=== PATIENT | female | born 1965 | race Hispanic/Latino ===

== ENCOUNTER → 2016-07-01 | Day surgery (SDC) | payer OTHER ==
[2016-07-01 10:46] LABS: ABSOLUTE BASOPHIL COUNT 0 /CUMM (0.0-0.2); ABSOLUTE EOSINOPHIL COUNT 0.6 /CUMM (0.0-0.7); ABSOLUTE GRANULOCYTE CT 2.8 /CUMM (1.4-6.5); ABSOLUTE LYMPH COUNT 1.5 /CUMM (1.2-3.4); ABSOLUTE MONOCYTE COUNT 0.3 /CUMM (0.10-0.60)
[2016-07-01 10:53] LABS: BASOPHIL % 0.1 % (0.0-2.0); EOSINOPHIL % 11.1 % (0-5); GRANULOCYTE % 53.8 % (42.2-75.2); HEMATOCRIT 23.1 % (37-47); MEAN CORPUSCULAR HGB 19.5 PG (27.0-31.0); MEAN CORPUSCULAR HGB CONC 30.6 G/DL (33.0-37.0); MEAN CORPUSCULAR VOLUME 63.9 FL (81.0-99.0); MEAN PLATELET VOLUME 7.2 FL (7.4-10.4); PLATELET COUNT 348 /CUMM (130-400); RBC DISTRIBUTION WIDTH 17.6 % (11.5-14.5); RED BLOOD CELL CT 3.61 /CUMM (4.20-5.40); WHITE BLOOD CELL COUNT 5.2 /CUMM (4.8-10.8)
[2016-07-01 10:59] LABS: PTT 27 SEC (25-37)
--- NOTE | 2016-07-01 13:02 | Operative Report ---
Operative/Inv Procedure Report Surgery Date: 07/01/16 Name of Procedure: D&C hysteroscopy Pre-Operative Diagnosis: Fibroids metromenorrhagia Post-Operative Diagnosis: Same Estimated Blood Loss: 50ml to 100ml Surgeon/Melt Supervisor: ABEL DUKE,QUIANA Quispe Anesthesia: moderate sedation Operative/Procedure Note Note: Procedure patient was taken the operating room placed prone position after adequate anesthesia patient placed in dorsolithotomy position vagina from dorsal fashion bladder was catheterized examination under anesthesia performed CO2 tenaculum was on the Intralipid cervix gentle downward traction allow for the insertion hysteroscope . Cervix had been dilated 29 Hegar to allow for the insertion hysteroscope under direct visualization using gas hysteroscopy was performed hysteroscope was removed a Sharp curettage endometrial lining performed sharp curettage and cervical lining was performed 2 specimen sent to pathology once was removed from the vagina the patient was returned spine position she was awakened from anesthesia and transferred recovery room awake alert counts correct
== END ==
LOC: STS 03:02
PROVIDERS: Specialist
DX: D25.9 Leiomyoma of uterus, unspecified (principal); N92.1 Excessive and frequent menstruation with irregular cycle
CPT/HCPCS: 36415; 81003; 88305; J0131; J2250